=== PATIENT | female | born 1975 | race Caucasian/White ===

== ENCOUNTER 2021-08-15 09:47 | Outpatient (REF) | payer BC, SELFPAY ==
--- NOTE | ~2021-08-15 | CT_ITS ---
EXAMINATION: CT SOFT TISSUE NECK WITHOUT AND WITH CONTRAST CLINICAL INFORMATION: Spinal stenosis. Cervical pain. COMPARISON: None available. TECHNIQUE: Multidetector helical imaging of the neck was obtained without and following the administration of 60 mL of Omnipaque [address] examination was performed using dose optimization techniques as appropriate, variously including the following: *Automated exposure control *Adjustment of mA and/or kV according to patient size (this includes techniques or standardized protocols for targeted exams where dose is matched to indication/reason for exam; i.e. extremities or head) *Use of iterative reconstruction technique DLP: 707 mGy-cm FINDINGS: No significant cutaneous thickening or subcutaneous inflammation. No discrete fluid collection within the deep tissues of the neck. The premaxillary, retromaxillary, pterygopalatine fossa, orbital apical, parapharyngeal, and prelaryngeal adipose tissue is maintained. Normal appearance of the parotid and submandibular glands. There is a hypoattenuating 0.8 cm curvilinear in the right thyroid lobe (no follow-up imaging recommended). Few additional smaller hypoattenuating thyroid nodules. Otherwise, the thyroid gland is normal in appearance. Scattered subcentimeter lymph nodes bilaterally, none of which are pathologically enlarged or abnormally enhancing. No focal lesion or abnormal enhancement demonstrated within the intrinsic tissues of the tongue or floor of mouth. Normal mucosal contours of the pharynx and larynx without abnormal enhancement. Normal appearance of the hyoid bone, thyroid cartilage, or cartilaginous trachea. The airways remains widely patent. No radiopaque foreign bodies. The atlantooccipital and atlantoaxial articulations remain well aligned. Straightening of the normal cervical lordosis. Otherwise, there is anatomic alignment of the vertebral bodies and posterior elements. No evidence of acute fracture or subluxation of the cervical spine. The vertebral body heights are maintained. Advanced degenerative disc disease at C5-C6 with disc-osteophyte complex formation. There appears to be at least mild spinal canal stenosis at this level. Mild degenerative disc disease at C3-C4, C4-C5, and C6-C7. Facet and uncovertebral joint arthropathy leads to osseous encroachment on the neural foramina from C3-C6. No demonstrated evidence of epidural collection. There is no prevertebral soft tissue swelling. Normal opacification of the cervical arterial and venous structures. The visualized portion of the skull base is without significant abnormalities. The visualized paranasal sinuses are clear. The mastoid air cells and middle ear cavities are clear. No demonstrated significant periapical odontogenic disease. No demonstrated suspicious lytic or sclerotic osseous lesions. CT Upper Chest: Right-sided chest port in place. Left-sided subcutaneous monitoring device in the anterior chest wall. The visualized lung apices and upper mediastinum are within normal limits. CT/CT soft tissue neck wo/w con IMPRESSION: 1. No demonstrated focal lesion, collection, pathologically enlarged lymphadenopathy, or abnormal enhancement within the soft tissues of the neck. 2. Mild to moderate multilevel degenerative spondyloarthropathy of the cervical spine. Most notably on this limited exam without intrathecal contrast, there appears to be at least mild spinal canal stenosis at C5-C6.
[2021-08-15] MEDS: iohexoL 350 MG/ML 100 ML INFUS..BTL IV (10:54)
== END 2021-08-15 09:48 | disposition home or self-care (01) ==
LOC: HO.CT 09:47
PROVIDERS: Visit Provider Ophthalmology
DX: M48.02 Spinal stenosis, cervical region (principal); H57.10 Ocular pain, unspecified eye; M54.2 Cervicalgia
CPT/HCPCS: 70492; Q9967

== ENCOUNTER 2022-02-28 06:06 | Outpatient (REF) | payer BC, SELFPAY ==
--- NOTE | ~2022-02-28 | FL_ITS ---
EXAMINATION: XR FLUOROSCOPY WITH IMAGES CLINICAL INFORMATION: M47.812 - Spondylosis without myelopathy or radiculopathy, cervical region COMPARISON: CT soft tissue neck 08/15/2021 TECHNIQUE: Fluoroscopy performed by Dr. Joe Rodas. Fluoroscopy time: 0.2 minutes. Cumulative Dose: 3.24 mGy. DAP: 0.435 Gy-cm2. Images: 2. FINDINGS: There are spinal needles overlying the left lateral masses cervical spine approximately C3, C4, and C5. There is contrast in the paraspinal soft tissues and likely early nerve sheath contrast. No visible vascular communication. There are degenerative disc changes C5-C6 with mild disc narrowing and vertebral spurring. FL/FL guidance in treatment room IMPRESSION: Fluoroscopy for pain management procedure.
== END 2022-02-28 06:07 | disposition home or self-care (01) ==
LOC: CF 06:06
PROVIDERS: Visit Provider Internal Medicine
DX: M47.812 Spondylosis without myelopathy or radiculopathy, cervical region (principal)
CPT/HCPCS: 64490; 64491